=== PATIENT | male | born 1935 | race Caucasian/White ===

== ENCOUNTER → 2017-02-08 | Outpatient (CLI) | payer MEDICARE ==
[~2017-02-08] MED LIST: ACYC400T7 PO; AMLO5TAB2 PO; ASPI325T32 PO; CALC250T2 PO; CITA10TA12 PO; HALO1TAB PO; INSA70301U SQ; INSU100I29 SQ; LISI40TA PO; MELO7.5T46 PO; METF500T4 PO; METO-333 PO; PRED10TA22 PO; RISP1TAB3 PO; RIVA1PAT TD; SIMV5TAB6 PO; [UNRECOGNIZED DRUG - CODE] MC
== END ==
PROVIDERS: ATTEND Urology
DX: Z53.9 Procedure and treatment not carried out, unspecified reason (principal)

== ENCOUNTER 2017-04-28 04:45 | Inpatient (IN) | payer MEDICARE ==
[~2017-04-28] VITALS: Ht 188 cm; Wt 89.0 kg
[2017-04-28] VITALS (29 sets, daily range): BP systolic 102–191; BP diastolic 57–127
[2017-04-28 05:09] LABS: BASOPHILS % (AUTO) 0 % (0-10); EOSINOPHILS # (AUTO) 0.1 10^3/uL (0.0-0.3); EOSINOPHILS % (AUTO) 0 % (0-10); LYMPHOCYTES # (AUTO) 0.9 X 10^3 (1.0-4.0); LYMPHOCYTES % (AUTO) 7 % (12-44); MEAN CORPUSCULAR HEMOGLOBIN 31 PG (25-34); MEAN CORPUSCULAR HGB CONC 34 G/DL (32-36); MEAN CORPUSCULAR VOLUME 93 FL (80-99); MEAN PLATELET VOLUME 9.6 FL (7.4-10.4); MONOCYTES # (AUTO) 1.4 X 10^3 (0.0-1.0); MONOCYTES % (AUTO) 10 % (0-12); NEUTROPHILS # (AUTO) 11.1 X 10^3 (1.8-7.8); NEUTROPHILS % (AUTO) 83 % (42-75); PLATELET COUNT 173 10^3/uL (130-400); RED BLOOD COUNT 3.89 10^6/uL (4.35-5.85); RED CELL DISTRIBUTION WIDTH 13.4 % (10.0-14.5); WHITE BLOOD COUNT 13.4 10^3/uL (4.3-11.0)
[2017-04-28] MEDS ORDERED: DIVA125C10 PO (05:12)
[2017-04-28] MEDS ORDERED: ALPR0.5T7 PO (05:12)
[2017-04-28] MEDS ORDERED: TRAZ100T92 PO (05:12)
[2017-04-28] MEDS ORDERED: RT-ALBUTEROL/IPRATROPIUM 3 ML (DUONEB) VIAL INH ONE (05:15)
[2017-04-28 05:17] LABS: ABG BASE EXCESS 1.5 MMOL/L (-2.5-2.5); ABG HCO3 26 MMOL/L (23-27); ABG OXYGEN SATURATION 100 % (94-100); ABG PCO2 42 MMHG (35-45); ABG PO2 432 MMHG (79-93); ABG TCO2 27.5 MMOL/L (21.0-31.0)
[2017-04-28 05:18] LABS: ALLENS TEST YES-POS; PATIENT TEMP 96.1
[2017-04-28 05:23] LABS: INR 1.1 (0.8-1.4); PROTHROMBIN TIME PATIENT 14.5 SEC (12.2-14.7)
[2017-04-28 05:31] LABS: ALANINE AMINOTRANSFERASE 19 U/L (0-55); ALBUMIN 3.2 GM/DL (3.2-4.5); AMYLASE 34 U/L (25-125); ANION GAP 10 MMOL/L (5-14); ASPARTATE AMINO TRANSFERASE 23 U/L (5-34); BILIRUBIN,TOTAL 0.3 MG/DL (0.1-1.0); BLOOD UREA NITROGEN 16 MG/DL (7-18); BUN/CREATININE RATIO 28; CALCIUM 8.5 MG/DL (8.5-10.1); CARBON DIOXIDE 25 MMOL/L (21-32); CHLORIDE 105 MMOL/L (98-107); CREATININE SERUM 0.58 MG/DL (0.60-1.30); GFR ESTIMATED > 60; GLUCOSE 97 MG/DL (70-105); LIPASE 15 U/L (8-78); MAGNESIUM 1.5 MG/DL (1.8-2.4); POTASSIUM 3.4 MMOL/L (3.6-5.0); SODIUM 140 MMOL/L (135-145); TOTAL PROTEIN 6.1 GM/DL (6.4-8.2)
[2017-04-28 05:32] LABS: BILIRUBIN,URINE NEGATIVE (NEGATIVE); KETONES,URINE NEGATIVE (NEGATIVE); LEUKOCYTE ESTERASE ,URINE 3+ (NEGATIVE); NITRITE,URINE POSITIVE (NEGATIVE); PH,URINE 7 (5-9); PROTEIN,URINE 2+ (NEGATIVE); UROBILINOGEN,URINE NORMAL (NORMAL)
[2017-04-28 05:40] LABS: SQUAMOUS EPITHELIAL CELL,UR 0-2 /HPF
[2017-04-28 05:51] LABS: TROPONIN I < 0.30 NG/ML (<0.30)
[2017-04-28] MEDS ORDERED: DEXTROSE 50% 50 ML (IMS) SYR ONE (06:47)
[2017-04-28] MEDS ORDERED: FUROSEMIDE 40 MG/4 ML INJ (LASIX) IVP ONE (07:00)
--- NOTE | 2017-04-28 07:14 | Diagnostic Imaging Report ---
INDICATION: Unresponsive. Comparison study: Chest from 11/04/2015. FINDINGS: Portable view of the chest demonstrates stable cardiomegaly. Vascularity is slightly increased with pulmonary vascular redistribution. Underlying COPD changes are present. A chondroid lesion is present in the right humerus consistent with an enchondroma. IMPRESSION: Stable cardiomegaly with development of pulmonary vascular redistribution and underlying COPD changes. Dictated by: Dictated on workstation # [id number]
--- NOTE | 2017-04-28 07:17 | Diagnostic Imaging Report ---
INDICATION: Unresponsive rule out stroke. COMPARISON STUDY: MRI of brain from 11/06/2015. FINDINGS: Diffuse central and cortical atrophy is present. White matter changes are present. These appear to have progressed from the previous exam with no focal areas. Calcifications are present within the basilar arteries. No hyperdense MCA sign or insular ribbon sign is present. There is no mass effect, midline shift or hemorrhage. Bone windows demonstrate no evidence of fracture. IMPRESSION: Since a year ago, there has been increase of the diffuse white matter disease consistent with microvascular disease. Atrophy is again identified. No acute intracranial findings are seen at this time. Consider MRI for further evaluation for an acute CVA. Dictated by: Dictated on workstation # [id number]
[2017-04-28] MEDS ORDERED: cefTRIAXone 1 GM (ROCEPHIN) VIAL ONE (07:35)
[2017-04-28] MEDS: cefTRIAXone INJECTION 1,000 MG in NS (IVPB) 50 ML IV SCH (07:48)
[2017-04-28] MEDS: NS (IVPB) 50 ML ONE ×2 (07:48→08:06)
--- NOTE | 2017-04-28 08:27 | History & Physical-Hospitalist ---
HPI History of Present Illness: HPI/Chief Complaint Pt is an 81yoCM with a PMH of dementia who presented to the ER due to unresponsiveness. He is unable to provide me any history. His care provider from [facility] is at bedside. She reports that he had a normal day yesterday and at his 1130pm bed check he was fine per their staff. At 130AM when they checked on him his was unresponsive. She was then called to his room and she checked a blood sugar which was too low to read. EMS was called then. Per ER provide he was treated for hypoglycemia per EMS and nexyt BS check was 88. On arrival here his BS was normal but quickly dropped to 23. He was treated again with an amp of D50. His mentation has not improved despite normalization of blood sugars. He was also found to be hypoxic on arrival and was placed on BiPAP by the ER. He was Source: family Exam Limitations: clinical condition Date Seen 04/28/17 Time Seen by Provider: 07:03 Attending Physician Elaine Waldron MD PCP Dr Hamilton Referring Physician Date of Admission Apr 28, 2017 at 07:40 Home Medications & Allergies Home Medications Reviewed patient Home Medication Reconciliation Form Allergies Allergies Coded Allergies No Known Drug Allergies (Unverified11/04/15) Past Nkepilx-Fepkhc-Hphvsv Hx Patient Social History Employed/Student: retired Alcohol Use: Denies Use Recreational Drug Use: No Smoking Status: Unknown if Ever Smoked Recent Foreign Travel: No Contact w/other who traveled: No Recent Hopitalizations: No Recent Infectious Disease Expo: No Immunizations Up To Date Tetanus Booster (TDap): Unknown Seasonal Allergies Seasonal Allergies: No Surgeries No Lobectomy Respiratory No Cardiovascular Yes High Cholesterol, Hypertension Neurological Yes ALS/Rosie Gehrig's, Dementia, Stroke Genitourinary No Gastrointestinal No Musculoskeletal No Endocrine History of Endocrine Disorders: Yes Endocrine Disorders: Diabetes, Insulin dep HEENT History of HEENT Disorders: No Cancer Yes Liver Psychosocial History of Psychiatric Problem: Yes Behavioral Health Disorders: Depression Integumentary History of Skin or Integumenta: No Family Medical History Significant Family History: No Pertinent Family Hx Review of Systems ROS-Unable to Obtain: Unresponsive Constitutional: see HPI Physical Exam Physical Exam Vital Signs Vital Sign - Last 12Hours 04/28/17 04/28/17 04:58 08:40 Temp 96.1 Pulse 114 Resp 18 B/P (MAP) 92/73 (79) Pulse Ox 88 O2 Delivery Non Rebreather O2 Flow Rate 15.00 FiO2 45 Capillary Refill : Less Than 3 Seconds General Appearance: No Apparent Distress, WD/WN HEENT: PERRL/EOMI, Moist Mucous Membranes, No Scleral Icterus (L), No Scleral Icterus (R), Other (on BIPAP) Neck: Non Tender, Supple, No Lymphadenopathy (L), No Lymphadenopathy (R) Respiratory: No Accessory Muscle Use, Decreased Breath Sounds (bases), Other Cardiovascular: No JVD, No Murmur, Irregularly Irregular Gastrointestinal: Normal Bowel Sounds, Non Tender, Soft Extremity: Normal Capillary Refill, No Calf Tenderness, No Pedal Edema, Other ( mildly hypertonic) Neurologic/Psychiatric: Disoriented x3 Skin: Normal Color, Warm/Dry Results Results/Procedures Lab Laboratory Tests 04/28/17 04:50 Radiology CHEST 1 VIEW, AP/PA ONLY INDICATION: Unresponsive. Comparison study: Chest from 11/04/2015. FINDINGS: Portable view of the chest demonstrates stable cardiomegaly. Vascularity is slightly increased with pulmonary vascular redistribution. Underlying COPD changes are present. A chondroid lesion is present in the right humerus consistent with an enchondroma. IMPRESSION: Stable cardiomegaly with development of pulmonary vascular redistribution and underlying COPD changes. CT HEAD WO-R/O STROKE INDICATION: Unresponsive rule out stroke. COMPARISON STUDY: MRI of brain from 11/06/2015. FINDINGS: Diffuse central and cortical atrophy is present. White matter changes are present. These appear to have progressed from the previous exam with no focal areas. Calcifications are present within the basilar arteries. No hyperdense MCA sign or insular ribbon sign is present. There is no mass effect, midline shift or hemorrhage. Bone windows demonstrate no evidence of fracture. IMPRESSION: Since a year ago, there has been increase of the diffuse white matter disease consistent with microvascular disease. Atrophy is again identified. No acute intracranial findings are seen at this time. Consider MRI for further evaluation for an acute CVA. Assessment/Plan Admission Diagnosis Altered Mental Status Diagnosis/Problems Diagnosis/Problems (1) Altered mental status Status: Acute Assessment & Plan: Likely due to sepsis and hypoglycemia Hypoglycemia improving without marked improvement in mentation Continue IV abx for UTI CT head negative ABG shows no hypercapnia Qualifiers: Qualified Codes: R41.82 - Altered mental status, unspecified (2) UTI (urinary tract infection) Status: Acute Assessment & Plan: Met severe sepsis criteria on admission (tachycardia and leukocytosis with lactic acidosis) No hypotension so no indicatoin for fluid bolus Continue Rocephin Lactic acid now resolved Blood cx and urine cx ordered in ER Qualifiers: Qualified Codes: N30.00 - Acute cystitis without hematuria (3) Severe sepsis Status: Acute Assessment & Plan: As above Lactic acidosis resolved Continue IV Abx (4) Acute respiratory distress Status: Acute Assessment & Plan: Pulm consulted, appreciate recs On BiPAP MAT protocol (5) Atrial fibrillation with RVR Status: Acute Assessment & Plan: Cardiology consulted, appreciate recs Rate improved to 70s-80s (6) Hypoglycemia Status: Acute Assessment & Plan: Received normal Levemir dose last night Continue on D5W at 75ml/hr Q1 accu-cheks (7) Essential (primary) hypertension Status: Chronic Assessment & Plan: BP elevated Unable to tolerate oral home meds prn nitropaste added (8) Normocytic anemia Status: Chronic Assessment & Plan: Mild, trend (9) Counseling regarding end of life decision making Assessment & Plan: Discussed poor prognosis with family, they have confirmed he is a DNR and would not like invasive or extreme measures done Discussed progression of dementia with family and how UTIs and Pneumonia are common in end stage dementia ELAINE WALDRON MD Apr 28, 2017 08:27
[2017-04-28] MEDS ORDERED: ENOXAPARIN 40 MG/0.4 ML (LOVENOX) SYR SC SCH (08:45)
[2017-04-28] MEDS ORDERED: D5 NS 1000 ML IV SOLUTION 1,000 ML IV SCH (08:45)
[2017-04-28] MEDS ORDERED: D5W 1000 ML IV SOLUTION 1,000 ML IV SCH (09:15)
[2017-04-28] MEDS ORDERED: ASPI-983 PO (09:35)
[2017-04-28] MEDS ORDERED: ACET-77 PO (09:35)
[2017-04-28] MEDS ORDERED: TOLTA4 PO (09:35)
[2017-04-28] MEDS ORDERED: MELA3TAB PO (09:35)
[2017-04-28] MEDS ORDERED: POLY17PO6 PO (09:35)
[2017-04-28] MEDS ORDERED: CATHETER FLUSH 10 ML SYR IV PRN (09:45)
--- NOTE | 2017-04-28 10:14 | Consultation-Cardiology ---
HPI-Cardiology Cardiology Consultation: Date of Consultation 04/28/17 Date of Admission Attending Physician Elaine Waldron MD Admitting Physician Radu Srivastava DO Consulting Physician Teagan WRIGHT MD HPI: Time Seen by Provider: 09:15 Chief Complaint: Atrial fibrillation This is a 81-year-old gentleman who presents with altered mental status and was found to have hypoglycemia. Shortness of breath on BiPAP therapy. Also found to be in atrial fibrillation. When I went to take history patient is not responsive. He also has history of advanced dementia. Review of Systems-Cardiology Review of Systems Constitutional: No As described under HPI, No no symptoms reported, No chills, No fever, No lightheadedness, No malaise, No tiredness, No weight loss, No weight gain, No other Eyes: No As described under HPI, No no symptoms reported, No blindness, No blurred vision, No contact lenses, No drainage, No decreased acuity, No foreign body sensation, No glasses, No inflammation, No pain, No photophobia, No previous injury, No shadows, No tunnel vision, No other, No vision change Ears/Nose/Throat: No As described under HPI, No no symptoms reported, No chronic hearing loss, No epistaxis, No ear discharge, No ear pain, No loose teeth, No mouth pain, No mouth swelling, No nasal drainage, No nose pain, No recent hearing loss, No throat pain, No throat swelling, No ulcerations, No other Respiratory: No no symptoms reported, No As described under HPI, No cough, No orthopnea, No shortness of breath, No SOB with excertion, No SOB at rest, No stridor, No wheezing, No other Cardiovascular: irregular heart rate Gastrointestinal: No no symptoms reported, No As described under HPI, No abdomen distended, No abdominal pain, No blood streaked bowels, No constipation , No diarrhea, No difficulty swallowing, No nausea, No poor appetite, No poor fluid intake, No rectal bleeding, No vomiting, No other, No nausea/vomiting/ diarrhea, No stool coloration changes Genitourinary: No no symptoms reported, No As described under HPI, No burning, No dysuria, No discharge, No frequency, No flank pain, No hematuria, No incontinence, No pain, No urgency, No other, No urine frequency changes, No urine coloration changes Musculoskeletal: No no symptoms reported, No As describe under HPI, No back pain, No gout, No joint pain, No joint swelling, No muscle pain, No muscle stiffness, No neck pain, No other Skin: No no symptoms reported, No As described under HPI, No change in color, No change in hair/nails, No dryness, No lesions, No lumps, No rash, No other, No skin related problems, No ulcerations, No rash on exposed areas, No ulcerations on exposed areas Psychiatric/Neurological: No no symptoms reported, No As described under HPI, No anxiety, No depression, No emotional problems, No headache, No numbness, No pre-existing deficit, No seizure, No tingling, No tremors, No weakness, No other , No focal weakness, No syncope Hematologic: No no symptoms reported, No As described under HPI, No anemia, No blood clots, No easy bleeding, No easy bruising, No swollen glands, No other, No bleeding abnormalities WNA-Vqlgpo-Bgrucv Hx Patient Social History Employed/Student: retired Alcohol Use: Denies Use Recreational Drug Use: No Smoking Status: Unknown if Ever Smoked Recent Foreign Travel: No Recent Infectious Disease Expo: No Hospitalization with Isolation: Denies Immunizations Up To Date Tetanus Booster (TDap): Unknown Past Medical History PMH As described under Assessment. Allergies and Home Medications Allergies Coded Allergies: No Known Drug Allergies (Unverified , 11/04/15) Home Medications Acetaminophen 500 Mg Tablet, 1,000 MG PO TID, (Reported) TAKES 2 (500MG) TABLETS Alprazolam 0.5 Mg Tablet, 0.5 MG PO TID, (Reported) Amlodipine Besylate 5 Mg Tablet, 5 MG PO DAILY, (Reported) HOLD SBP<100 HR<60 Aspirin 81 Mg Tablet.dr, 81 MG PO DAILY, (Reported) Divalproex Sodium 125 Mg Cap.sprink, 250 MG PO QID, (Reported) TAKES 2 (125MG) CAPSULES Insulin Detemir 100 Unit/1 Ml Insuln.pen, 15 UNIT SQ 1700, (Reported) Lisinopril 40 Mg Tablet, 40 MG PO DAILY, (Reported) HOLD SBP<100 Melatonin 3 Mg Tablet, 3 MG PO HS, (Reported) Meloxicam 7.5 Mg Tablet, 7.5 MG PO DAILY, (Reported) Metformin HCl 500 Mg Tablet, 500 MG PO BID, (Reported) Metoprolol Tartrate 25 Mg Tablet, 25 MG PO DAILY, (Reported) HOLD SBP<100 Polyethylene Glycol 3350 17 Gm Powd.pack, 17 GM PO DAILY, (Reported) Simvastatin 5 Mg Tablet, 5 MG PO 1700, (Reported) Tolterodine Tartrate 4 Mg Cap, 4 MG PO DAILY, (Reported) Trazodone HCl 100 Mg Tablet, 100 MG PO HS, (Reported) Physical Exam-Cardiology Physical Exam Vital Signs/I&O Vital Sign - Last 12Hours 04/28/17 04/28/17 04/28/17 04/28/17 04:58 04:58 05:21 07:38 Temp 96.1 Pulse 114 76 Resp 18 15 B/P (MAP) 92/73 (79) Pulse Ox 88 88 100 100 O2 Delivery Non Rebreather Non Rebreather O2 Flow Rate 15.00 15.00 100.00 45.00 04/28/17 04/28/17 04/28/17 04/28/17 08:11 08:38 08:45 08:45 Temp 96.0 Pulse 77 69 69 Resp 18 20 11 B/P (MAP) 170/99 (122) Pulse Ox 100 98 100 O2 Delivery NIV Bilevel NIV Bilevel O2 Flow Rate 45.00 45.00 04/28/17 04/28/17 04/28/17 04/28/17 09:00 09:15 09:30 09:45 Pulse 70 69 68 80 Resp 10 11 11 13 B/P (MAP) 156/93 (114) 157/95 (115) 157/97 (117) 169/105 (126) Pulse Ox 100 100 100 100 O2 Delivery NIV Bilevel NIV Bilevel NIV Bilevel NIV Bilevel O2 Flow Rate 45.00 45.00 45.00 45.00 04/28/17 04/28/17 04/28/17 04/28/17 10:00 10:15 10:30 10:30 Temp 96.8 Pulse 79 74 81 Resp 18 13 10 B/P (MAP) 172/104 (126) 179/127 (144) Pulse Ox 100 100 100 O2 Delivery NIV Bilevel NIV Bilevel NIV Bilevel O2 Flow Rate 45.00 45.00 45.00 04/28/17 04/28/17 04/28/17 04/28/17 10:40 10:45 11:00 11:04 Pulse 94 86 77 83 Resp 10 14 B/P (MAP) 169/95 (119) Pulse Ox 100 99 100 100 O2 Delivery NIV Bilevel NIV Bilevel O2 Flow Rate 45.00 45.00 45.00 FiO2 45 04/28/17 04/28/17 04/28/17 11:10 11:15 12:00 Pulse 80 8 Resp 16 15 B/P (MAP) 167/105 (125) Pulse Ox 100 100 O2 Delivery NIV Bilevel NIV Bilevel NIV Bilevel O2 Flow Rate 35.00 30.00 30.00 Capillary Refill : Less Than 3 Seconds Constitutional: other HEENT: No PERRL, No normal ENT inspection, No TMs normal, No pharynx normal, No scleral icterus (R), No scleral icterus (L), No pale conjunctivae (R), No pale conjunctivae (L), No photophobia, No TM abnormal (R), No TM abnormal (L), No pharyngeal erythema, No tonsillar exudate, No other, No discharge, No EOMI, No hearing is well preserved, No hard of hearing, No oral hygience is good, No ulceration, No xanthelasmas are seen Neck: No non-tender, No full range of motion, No supple, No normal inspection, No carotid bruit, No limited range of motion, No lymphadenopathy (R), No lymphadenopathy (L), No tender lateral, No tender midline, No thyromegaly, No other, No carotid pulses are 2 + bilaterally, No with good upstrokes Respiratory: other (coarse bilateral breath sounds) Cardiovascular: irregularly irregular, tachycardia, S1 and S2 Gastrointestinal: No tender, No soft, No round, No distended, No pulsatile mass , No organomegaly, No guarding, No rebound, No tenderness, No hernia, No mass, No audible bowel sounds, No abnormal bowel sounds, No abdominal bruits, No spleenomegaly, No other Rectal: deferred Extremities: No normal range of motion, No non-tender, No normal inspection, No pedal edema, No calf tenderness, No normal capillary refill, No pelvis stable , No calf tenderness, No inflammation, No pedal edema, No slow capillary refill , No swelling, No other, No abrasion, No clubbing, No cyanosis, No ecchymosis, No laceration, No no lower extremity edema bilateral, No significant edema, No tenderness, No wound Neurologic/Psychiatric: No asw/asuw tactical air controller II-XII nml as tested, No no motor/sensory deficits, No alert, No normal mood/affect, No oriented x 3, No abnormal cerebellar tests, No abnormal asw/asuw tactical air controller II-XII, No abnormal gait, No aphasia, No EOM palsy, No facial droop, No motor weakness, No sensory deficit, No depressed affect, No disoriented x 3, No other, No grossly intact, No power is 5/5 both on sides Skin: No normal color, No warm/dry, No cyanosis, No cool, No diaphoresis, No damp, No ecchymosis, No jaundice, No mottled, No pallor, No rash, No tattoos/ piercings, No ulcerations, No rash on exposed areas, No ulcerations on exposed areas, No other Data Review Labs Laboratory Tests 04/28/17 04:50: White Blood Count 13.4H, Red Blood Count 3.89L, Hemoglobin 12.2L, Hematocrit 36L , Mean Corpuscular Volume 93, Mean Corpuscular Hemoglobin 31, Mean Corpuscular Hemoglobin Concent 34, Red Cell Distribution Width 13.4, Platelet Count 173, Mean Platelet Volume 9.6, Neutrophils (%) (Auto) 83H, Lymphocytes (%) (Auto) 7L , Monocytes (%) (Auto) 10, Eosinophils (%) (Auto) 0, Basophils (%) (Auto) 0, Neutrophils # (Auto) 11.1H, Lymphocytes # (Auto) 0.9L, Monocytes # (Auto) 1.4H, Eosinophils # (Auto) 0.1, Basophils # (Auto) 0.0, Prothrombin Time 14.5, INR Comment 1.1, Activated Partial Thromboplast Time 33, Sodium Level 140, Potassium Level 3.4L, Chloride Level 105, Carbon Dioxide Level 25, Anion Gap 10 , Blood Urea Nitrogen 16, Creatinine 0.58L, Estimat Glomerular Filtration Rate > 60, BUN/Creatinine Ratio 28, Glucose Level 97, Lactic Acid Level 2.13*H, Calcium Level 8.5, Magnesium Level 1.5L, Total Bilirubin 0.3, Aspartate Amino Transf (AST/SGOT) 23, Alanine Aminotransferase (ALT/SGPT) 19, Alkaline Phosphatase 112, Troponin I < 0.30, B-Type Natriuretic Peptide 296.9H, Total Protein 6.1L, Albumin 3.2, Amylase Level 34, Lipase 15, TSH [place] Testing 2.08 , Valproic Acid (Depakene) Level 38.2L 04/28/17 04:58: Glucometer 98 04/28/17 05:12: Blood Gas Puncture Site RIGHT RADIAL, Blood Gas Patient Temperature 96.1, Arterial Blood pH 7.40, Arterial Blood Partial Pressure CO2 42, Arterial Blood Partial Pressure O2 432H, Arterial Blood HCO3 26, Arterial Blood Total CO2 27.5 , Arterial Blood Oxygen Saturation 100, Arterial Blood Base Excess 1.5, Jacobo Test YES-POS, Blood Gas Ventilator Setting NO, Blood Gas Inspired Oxygen 100% 04/28/17 05:25: Urine Color YELLOW, Urine Clarity CLEAR, Urine pH 7, Urine Specific [place] 1.010L, Urine Protein 2+H, Urine Glucose (UA) NEGATIVE, Urine Ketones NEGATIVE, Urine Nitrite POSITIVEH, Urine Bilirubin NEGATIVE, Urine Urobilinogen NORMAL, Urine Leukocyte Esterase 3+H, Urine RBC (Auto) 1+H, Urine RBC 0-2, Urine WBC 5- 10H, Urine Squamous Epithelial Cells 0-2, Urine Crystals NONE, Urine Bacteria MODERATEH, Urine Casts NONE, Urine Mucus NEGATIVE, Urine Culture Indicated YES 04/28/17 06:47: Lactic Acid Level 2.20*H 04/28/17 06:48: Glucometer 23*L 04/28/17 07:23: Glucometer 99 04/28/17 08:50: Lactic Acid Level 2.20*H 04/28/17 08:55: Glucometer 70 04/28/17 10:31: Glucometer 103 04/28/17 11:06: Glucometer 88 04/28/17 11:37: Lactic Acid Level 1.86 04/28/17 12:45: Glucometer 114H Microbiology 04/28/17 Influenza Types A,B Antigen (LISA) - Final, Complete ECG Impression ECG Initial ECG Impression: Atrial Fibrillation A/P-Cardiology Assessment/Admission Diagnosis Unresponsive, shortness of breath, atrial fibrillation with rapid ventricular rate, dementia Plan Unresponsive likely secondary to hypoglycemia. Defer to Dr. Waldron. Advanced dementia. Shortness of breath on BiPAP therapy. Atrial fibrillation with rapid ventricular rate. Already on Lovenox. Cannot take by mouth. Need to discuss with family whether they will agree with oral anticoagulation therapy. If he has risk for fall he may not be a good candidate. Echocardiogram pending Thank you for your consultation. Please call me if you have any questions. Kashmir Wright MD, FACP, FACC, FSCAI, FHRS, CCDS Interventional Cardiology Cardiac Electrophysiology Vascular Medicine and Endovascular Interventions Teagan WRIGHT MD Apr 28, 2017 10:14 am
[2017-04-28] MEDS ORDERED: NITROGLYCERIN 2% OINT 1 GM UNIT DOSE PACKET TOP PRN (14:00)
[2017-04-28] MEDS: RT-ALBUTEROL/IPRATROPIUM 3 ML (DUONEB) VIAL INH SCH ×3 (14:21→21:11)
[2017-04-28] MEDS: inSUlin ASPART (NovoLOG) 1 UNIT/0.01 ML (CHARGE PER UNIT) SC SCH ×2 (15:41→21:45)
[2017-04-28] MEDS: MAGNESIUM 1 GM/100 ML IVPB 100 ML IV SCH ×3 (16:18→17:37)
[2017-04-29] VITALS (27 sets, daily range): BP systolic 128–179; BP diastolic 49–105
[2017-04-29] MEDS: RT-ALBUTEROL/IPRATROPIUM 3 ML (DUONEB) VIAL INH SCH ×6 (02:25→21:50)
[2017-04-29 04:59] LABS: BASOPHILS % (AUTO) 0 % (0-10); EOSINOPHILS % (AUTO) 0 % (0-10); LYMPHOCYTES # (AUTO) 1.9 X 10^3 (1.0-4.0); LYMPHOCYTES % (AUTO) 19 % (12-44); MEAN CORPUSCULAR HEMOGLOBIN 32 PG (25-34); MEAN CORPUSCULAR HGB CONC 34 G/DL (32-36); MEAN CORPUSCULAR VOLUME 94 FL (80-99); MEAN PLATELET VOLUME 9.7 FL (7.4-10.4); MONOCYTES # (AUTO) 1.3 X 10^3 (0.0-1.0); MONOCYTES % (AUTO) 12 % (0-12); NEUTROPHILS # (AUTO) 7.1 X 10^3 (1.8-7.8); NEUTROPHILS % (AUTO) 69 % (42-75); PLATELET COUNT 171 10^3/uL (130-400); RED BLOOD COUNT 3.94 10^6/uL (4.35-5.85); RED CELL DISTRIBUTION WIDTH 13.6 % (10.0-14.5); WHITE BLOOD COUNT 10.4 10^3/uL (4.3-11.0)
[2017-04-29 05:21] LABS: ANION GAP 11 MMOL/L (5-14); BLOOD UREA NITROGEN 18 MG/DL (7-18); BUN/CREATININE RATIO 26; CARBON DIOXIDE 26 MMOL/L (21-32); CHLORIDE 100 MMOL/L (98-107); POTASSIUM 4.2 MMOL/L (3.6-5.0); SODIUM 137 MMOL/L (135-145)
[2017-04-29 05:22] LABS: CALCIUM 9.3 MG/DL (8.5-10.1); GFR ESTIMATED > 60; GLUCOSE 138 MG/DL (70-105); MAGNESIUM 1.7 MG/DL (1.8-2.4)
[2017-04-29] MEDS: POTASSIUM CL 10MEQ/50ML IVPB 50 ML IV SCH (05:34)
[2017-04-29] MEDS: MAGNESIUM 1 GM/100 ML IVPB 100 ML IV SCH ×3 (05:34→07:39)
[2017-04-29] MEDS: KCL 20 MEQ TAB (K-DUR) PO SCH (05:35)
[2017-04-29] MEDS: inSUlin ASPART (NovoLOG) 1 UNIT/0.01 ML (CHARGE PER UNIT) SC SCH ×4 (05:35→21:13)
[2017-04-29 06:25] LABS: ABG BASE EXCESS 3.2 MMOL/L (-2.5-2.5); ABG HCO3 27 MMOL/L (23-27); ABG OXYGEN SATURATION 100 % (94-100); ABG PCO2 36 MMHG (35-45); ABG PH 7.48 (7.37-7.43); ABG PO2 157 MMHG (79-93); ABG TCO2 27.7 MMOL/L (21.0-31.0)
[2017-04-29 06:35] LABS: ALLENS TEST YES-POS; PATIENT TEMP 98.6
--- NOTE | 2017-04-29 06:41 | Pulmonary Consultation ---
History of Present Illness History of Present Illness Date of Consultation 04/29/17 06:35 Time Seen by Provider: 06:35 Date of Admission History of Present Illness 81yo pt with hx of dementia presented to ED secondary to unresponsiveness. BS was too low to read when checked. PT was given D50 and then BS quickly dropped to 23. D50 was given again however MS did not improve. He was found to be hypoxic in ED and was placed on BiPAP. Unable to obtain ROS secondary to MS. All information obtained from chart. I am consulted for ICU management. Allergies and Home Medications Allergies Coded Allergies: No Known Drug Allergies (Unverified , 11/04/15) Home Medications Acetaminophen 500 Mg Tablet, 1,000 MG PO TID, (Reported) TAKES 2 (500MG) TABLETS Alprazolam 0.5 Mg Tablet, 0.5 MG PO TID, (Reported) Amlodipine Besylate 5 Mg Tablet, 5 MG PO DAILY, (Reported) HOLD SBP<100 HR<60 Aspirin 81 Mg Tablet.dr, 81 MG PO DAILY, (Reported) Divalproex Sodium 125 Mg Cap.sprink, 250 MG PO QID, (Reported) TAKES 2 (125MG) CAPSULES Insulin Detemir 100 Unit/1 Ml Insuln.pen, 15 UNIT SQ 1700, (Reported) Lisinopril 40 Mg Tablet, 40 MG PO DAILY, (Reported) HOLD SBP<100 Melatonin 3 Mg Tablet, 3 MG PO HS, (Reported) Meloxicam 7.5 Mg Tablet, 7.5 MG PO DAILY, (Reported) Metformin HCl 500 Mg Tablet, 500 MG PO BID, (Reported) Metoprolol Tartrate 25 Mg Tablet, 25 MG PO DAILY, (Reported) HOLD SBP<100 Polyethylene Glycol 3350 17 Gm Powd.pack, 17 GM PO DAILY, (Reported) Simvastatin 5 Mg Tablet, 5 MG PO 1700, (Reported) Tolterodine Tartrate 4 Mg Cap, 4 MG PO DAILY, (Reported) Trazodone HCl 100 Mg Tablet, 100 MG PO HS, (Reported) Past [id number]-Ytxbea-Bzcnvn Hx Patient Social History Alcohol Use: Denies Use Recreational Drug Use: No Smoking Status: Former Smoker Type Used: Cigarettes Former Smoker, Quit: Apr 11, 1990 Recent Foreign Travel: No Contact w/Someone Who Travel: No Recent Infectious Disease Expo: No Recent Hopitalizations: No Immunizations Up To Date Tetanus Booster (TDap): Unknown Date of Pneumonia Vaccine: Apr 28, 2016 Date of Influenza Vaccine: Apr 17, 2017 Seasonal Allergies Seasonal Allergies: No Surgeries History of Surgeries: No Surgeries: Lobectomy Respiratory History of Respiratory Disorde: No Cardiovascular History of Cardiac Disorders: Yes Cardiac Disorders: High Cholesterol, Hypertension Neurological History of Neurological Disord: Yes Neurological Disorders: ALS/Rosie Gehrig's, Dementia, Stroke Reproductive System HIV/AIDS: No Genitourinary History of Genitourinary Disor: No Gastrointestinal History of Gastrointestinal Di: No Musculoskeletal History of Musculoskeletal Dis: No Endocrine History of Endocrine Disorders: Yes Endocrine Disorders: Diabetes, Insulin dep HEENT History of HEENT Disorders: No Cancer History of Cancer: Yes (never diagnosed but "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" per DPOA) Cancer: Liver Did You Recieve Any Treatments: No Psychosocial History of Psychiatric Problem: Yes Behavioral Health Disorders: Sleep Difficulties, Depression Integumentary History of Skin or Integumenta: No Family Medical History Significant Family History: No Pertinent Family Hx Family Medial History: Diabetes mellitus 19 MOTHER FH: cancer G8 BROTHER, Onset:60 years & older Review of Systems Time Seen by Provider: 06:45 Exam Exam Vital Signs Date Time Temp Pulse Resp B/P (MAP) Pulse Ox O2 Delivery O2 Flow Rate FiO2 04/29/17 06:18 80 97 30.00 04/29/17 06:00 88 11 147/87 (107) 97 NIV Bilevel 30.00 04/29/17 05:00 89 19 149/93 (111) 98 NIV Bilevel 30.00 04/29/17 04:00 86 14 147/94 (111) 97 NIV Bilevel 30.00 04/29/17 03:00 86 25 159/92 (114) 95 NIV Bilevel 30.00 04/29/17 02:25 80 97 30.00 04/29/17 02:00 80 17 148/83 (104) 98 NIV Bilevel 30.00 04/29/17 01:00 85 04/29/17 01:00 90 11 128/49 (75) 97 NIV Bilevel 30.00 04/29/17 00:00 95 NIV Bilevel 30 04/29/17 00:00 80 13 150/82 (104) 97 NIV Bilevel 30.00 04/28/17 23:00 75 11 146/63 (90) 98 NIV Bilevel 30.00 04/28/17 22:00 84 16 133/57 (82) 100 NIV Bilevel 30.00 04/28/17 21:11 80 94 30.00 04/28/17 21:00 86 16 155/89 (111) 98 NIV Bilevel 30.00 04/28/17 20:00 NIV Bilevel 30 04/28/17 20:00 97.6 04/28/17 20:00 82 20 180/66 (104) 100 NIV Bilevel 30.00 04/28/17 19:47 87 96 30.00 04/28/17 19:00 80 15 164/90 (114) 100 NIV Bilevel 30.00 04/28/17 19:00 80 04/28/17 18:14 80 100 30.00 04/28/17 18:00 80 19 176/89 (118) 100 NIV Bilevel 30.00 04/28/17 17:00 80 20 191/63 (105) 100 NIV Bilevel 30.00 04/28/17 16:32 78 30.00 04/28/17 16:25 NIV Bilevel 30 04/28/17 16:00 76 14 172/92 (118) 100 NIV Bilevel 30.00 04/28/17 15:45 98.0 04/28/17 15:00 75 11 141/67 (91) 100 NIV Bilevel 30.00 04/28/17 14:45 04/28/17 14:29 77 100 30.00 04/28/17 14:00 92 12 186/88 (120) NIV Bilevel 30.00 04/28/17 13:00 90 04/28/17 13:00 87 6 176/112 (133) NIV Bilevel 30.00 04/28/17 12:40 97.1 04/28/17 12:35 NIV Bilevel 30 04/28/17 12:00 81 15 167/105 (125) 100 NIV Bilevel 30.00 04/28/17 11:15 80 16 100 NIV Bilevel 30.00 04/28/17 11:10 NIV Bilevel 35.00 04/28/17 11:04 83 100 45.00 04/28/17 11:00 77 14 169/95 (119) 100 NIV Bilevel 45.00 04/28/17 10:45 86 10 99 NIV Bilevel 45.00 04/28/17 10:40 94 100 45 04/28/17 10:30 96.8 04/28/17 10:30 81 10 100 NIV Bilevel 45.00 04/28/17 10:15 74 13 179/127 (144) 100 NIV Bilevel 45.00 04/28/17 10:00 79 18 172/104 (126) 100 NIV Bilevel 45.00 04/28/17 09:45 80 13 169/105 (126) 100 NIV Bilevel 45.00 04/28/17 09:30 68 11 157/97 (117) 100 NIV Bilevel 45.00 04/28/17 09:15 69 11 157/95 (115) 100 NIV Bilevel 45.00 04/28/17 09:00 70 10 156/93 (114) 100 NIV Bilevel 45.00 04/28/17 08:45 69 11 170/99 (122) 100 NIV Bilevel 45.00 04/28/17 08:45 96.0 04/28/17 08:40 NIV Bilevel 45 04/28/17 08:38 69 20 98 45.00 04/28/17 08:11 77 18 100 NIV Bilevel 04/28/17 07:38 76 15 100 45.00 I & O 04/29/17 07:00 Intake Total 750 ml Output Total 2250 ml Balance -1500 ml General Appearance: No Apparent Distress, WD/WN HEENT: PERRL/EOMI, Moist Mucous Membranes, No Scleral Icterus (L), No Scleral Icterus (R), Other (on BIPAP) Neck: Non Tender, Supple, No Lymphadenopathy (L), No Lymphadenopathy (R) Respiratory: No Accessory Muscle Use, Decreased Breath Sounds (bases), Other Cardiovascular: No JVD, No Murmur, Irregularly Irregular Capillary Refill: Less Than 3 Seconds Extremity: Normal Capillary Refill, No Calf Tenderness, No Pedal Edema, Other ( mildly hypertonic) Neurologic/Psychiatric: Disoriented x3 Skin: Normal Color, Warm/Dry Results Lab Laboratory Tests 04/28/17 04:50 04/29/17 04:40 Assessment/Plan Assessment/Plan UTI with sepsis -Continue Rocephin -loera cultures pending Acute respiratory failure -BiPAP PRN -Will trial pt off BiPAP Afib RVR -cardiology consulted Altered MS with hx of severe dementia. Family is discussing comfort care/ hospice care. 255 Clinical Quality Measures DVT/VTE Risk/Contraindication: Risk Factor Score Per Nursin RFS Level Per Nursing on Admit: 4+=Very High LESIA AVILES DO Apr 29, 2017 06:41
--- NOTE | 2017-04-29 08:07 | Progress Note-Hospitalist ---
Subjective HPI/CC On Admission Date Seen by Provider: Apr 29, 2017 Time Seen by Provider: 07:30 Pt is an 81yoCM with a PMH of dementia who presented to the ER due to unresponsiveness. He is unable to provide me any history. His care provider from [facility] is at bedside. She reports that he had a normal day yesterday and at his 1130pm bed check he was fine per their staff. At 130AM when they checked on him his was unresponsive. She was then called to his room and she checked a blood sugar which was too low to read. EMS was called then. Per ER provide he was treated for hypoglycemia per EMS and nexyt BS check was 88. On arrival here his BS was normal but quickly dropped to 23. He was treated again with an amp of D50. His mentation has not improved despite normalization of blood sugars. He was also found to be hypoxic on arrival and was placed on BiPAP by the ER. He was Subjective/Events-last exam Pt unable to provide ROS. Daughter in law at bedside. Reports not back to his baseline. Discussed progression of dementia and that we may not return to his normal. They are considering hospice and would like to meet with Palliative RN. Objective Exam Vital Signs Vital Sign - Last 12Hours 04/28/17 04/28/17 04:58 08:40 Temp 96.1 Pulse 114 Resp 18 B/P (MAP) 92/73 (79) Pulse Ox 88 O2 Delivery Non Rebreather O2 Flow Rate 15.00 FiO2 45 Capillary Refill : Less Than 3 Seconds General Appearance: Chronically ill Respiratory: Lungs Clear, No Accessory Muscle Use Cardiovascular: No JVD, No Murmur, Irregularly Irregular Gastrointestinal: Normal Bowel Sounds, Non Tender, Soft Extremity: Non Tender, No Calf Tenderness, No Pedal Edema, Other (hypertonic posture) Neurologic/Psychiatric: Alert, Disoriented x3 Results/Procedures Lab Laboratory Tests 04/29/17 04:40 Assessment/Plan Assessment and Plan Assess & Plan/Chief Complaint Sepsis Diagnosis/Problems Diagnosis/Problems (1) Altered mental status Status: Acute Assessment & Plan: Likely due to sepsis Hypoglycemia now Continue IV abx for UTI CT head negative ABG shows no hypercapnia Qualifiers: Qualified Codes: R41.82 - Altered mental status, unspecified (2) UTI (urinary tract infection) Status: Acute Assessment & Plan: Met severe sepsis criteria on admission (tachycardia and leukocytosis with lactic acidosis) No hypotension so no indication for fluid bolus Continue Rocephin, Day 2 Lactic acidosis now resolved Blood cx and urine cx ordered in ER - urine cx shows proteus >100,000 CFU and <100,000 CFU GPC Qualifiers: Qualified Codes: N30.00 - Acute cystitis without hematuria (3) Severe sepsis Status: Resolved Assessment & Plan: As above Lactic acidosis resolved Continue IV Abx (4) Acute respiratory distress Status: Acute Assessment & Plan: Pulm consulted, appreciate recs Now off BiPAP MAT protocol (5) Atrial fibrillation with RVR Status: Acute Assessment & Plan: Cardiology consulted, appreciate recs Rate improved to 70s-80s Started Lovenox and developed abby red bloody urine Holding currently (6) Hypoglycemia Status: Acute Assessment & Plan: Holding basal insulin and BS WNL Off D5 Continue to trend Q6 Accu-checks (7) Essential (primary) hypertension Status: Chronic Assessment & Plan: BP elevated Unable to tolerate oral home meds prn nitropaste (8) Normocytic anemia Status: Chronic Assessment & Plan: Mild, trend (9) Counseling regarding end of life decision making Assessment & Plan: Discussed poor prognosis with family, they have confirmed he is a DNR and would not like invasive or extreme measures done Discussed progression of dementia with family and how UTIs and Pneumonia are common in end stage dementia Interested in meeting with Palliative RN to discuss possible hospice JESSI GARCIA MD Apr 29, 2017 08:07
[2017-04-29] MEDS: cefTRIAXone INJECTION 1,000 MG in NS (IVPB) 50 ML IV SCH (08:44)
--- NOTE | 2017-04-29 12:53 | Cardiology Progress Note ---
Cardiology SOAP Progress Note Subjective: nonresponsive Objective: I&O/Vital Signs Vital Sign - Last 12Hours 04/29/17 04/29/17 04/29/17 04/29/17 01:00 01:00 02:00 02:25 Pulse 90 85 80 80 Resp 11 17 B/P (MAP) 128/49 (75) 148/83 (104) Pulse Ox 97 98 97 O2 Delivery NIV Bilevel NIV Bilevel O2 Flow Rate 30.00 30.00 30.00 04/29/17 04/29/17 04/29/17 04/29/17 03:00 04:00 04:00 05:00 Pulse 86 86 89 Resp 25 14 19 B/P (MAP) 159/92 (114) 147/94 (111) 149/93 (111) Pulse Ox 95 95 97 98 O2 Delivery NIV Bilevel NIV Bilevel NIV Bilevel NIV Bilevel O2 Flow Rate 30.00 30.00 30.00 FiO2 30 04/29/17 04/29/17 04/29/17 04/29/17 06:00 06:18 06:51 07:00 Pulse 88 80 81 89 Resp 11 18 B/P (MAP) 147/87 (107) Pulse Ox 97 97 98 O2 Delivery NIV Bilevel Nasal Cannula O2 Flow Rate 30.00 30.00 4.00 04/29/17 04/29/17 04/29/17 04/29/17 07:00 07:50 07:50 08:00 Temp 98.5 Pulse 84 80 Resp 10 14 B/P (MAP) 151/105 (120) 158/74 (102) Pulse Ox 99 99 O2 Delivery Nasal Cannula Nasal Cannula Nasal Cannula O2 Flow Rate 4.00 4.00 4.00 04/29/17 04/29/17 04/29/17 04/29/17 09:00 10:25 12:00 12:16 Temp 98.2 Pulse 92 Resp 20 B/P (MAP) 135/84 (101) Pulse Ox 99 97 O2 Delivery Nasal Cannula Nasal Cannula Nasal Cannula O2 Flow Rate 4.00 4.00 4.00 Intake and Output 04/29/17 00:00 Intake Total 700 ml Output Total 725 ml Balance -25 ml Weight (Pounds): 155 Weight (Ounces): 4.0 Weight (Calculated Kilograms): [id number] Constitutional: other Respiratory: other (coarse bilateral breath sounds) Cardiovascular: irregularly irregular, tachycardia, S1 and S2 Gastrointestional: No tender, No soft, No round, No distended, No pulsatile mass, No organomegaly, No guarding, No rebound, No tenderness, No hernia, No mass, No audible bowel sounds, No abnormal bowel sounds, No abdominal bruits, No spleenomegaly, No other Extremities: No normal range of motion, No non-tender, No normal inspection, No pedal edema, No calf tenderness, No normal capillary refill, No pelvis stable , No calf tenderness, No inflammation, No pedal edema, No slow capillary refill , No swelling, No other, No abrasion, No clubbing, No cyanosis, No ecchymosis, No laceration, No no lower extremity edema bilateral, No significant edema, No tenderness, No wound Neurologic/Psychiatric: No network architect II-XII nml as tested, No no motor/sensory deficits, No alert, No normal mood/affect, No oriented x 3, No abnormal cerebellar tests, No abnormal network architect II-XII, No abnormal gait, No aphasia, No EOM palsy, No facial droop, No motor weakness, No sensory deficit, No depressed affect, No disoriented x 3, No other, No grossly intact, No power is 5/5 both on sides Skin: No normal color, No warm/dry, No cyanosis, No cool, No diaphoresis, No damp, No ecchymosis, No jaundice, No mottled, No pallor, No rash, No tattoos/ piercings, No ulcerations, No rash on exposed areas, No ulcerations on exposed areas, No other Results/Procedures: Labs Laboratory Tests 04/28/17 13:36: Glucometer 114H 04/28/17 14:31: Glucometer 132H 04/28/17 15:34: Glucometer 155H 04/28/17 17:05: Glucometer 136H 04/28/17 18:04: Glucometer 144H 04/28/17 21:44: Glucometer 120H 04/29/17 01:11: Glucometer 125H 04/29/17 04:40: White Blood Count 10.4, Red Blood Count 3.94L, Hemoglobin 12.5L, Hematocrit 37L , Mean Corpuscular Volume 94, Mean Corpuscular Hemoglobin 32, Mean Corpuscular Hemoglobin Concent 34, Red Cell Distribution Width 13.6, Platelet Count 171, Mean Platelet Volume 9.7, Neutrophils (%) (Auto) 69, Lymphocytes (%) (Auto) 19, Monocytes (%) (Auto) 12, Eosinophils (%) (Auto) 0, Basophils (%) (Auto) 0, Neutrophils # (Auto) 7.1, Lymphocytes # (Auto) 1.9, Monocytes # (Auto) 1.3H, Eosinophils # (Auto) 0.0, Basophils # (Auto) 0.0, Sodium Level 137, Potassium Level 4.2, Chloride Level 100, Carbon Dioxide Level 26, Anion Gap 11, Blood Urea Nitrogen 18, Creatinine 0.70, Estimat Glomerular Filtration Rate > 60, BUN/ Creatinine Ratio 26, Glucose Level 138H, Calcium Level 9.3, Magnesium Level 1.7L 04/29/17 06:18: Blood Gas Puncture Site LEFT RADIAL, Blood Gas Patient Temperature 98.6, Arterial Blood pH 7.48H, Arterial Blood Partial Pressure CO2 36, Arterial Blood Partial Pressure O2 157H, Arterial Blood HCO3 27, Arterial Blood Total CO2 27.7 , Arterial Blood Oxygen Saturation 100, Arterial Blood Base Excess 3.2H, Jacobo Test YES-POS, Blood Gas Ventilator Setting NO, Blood Gas Inspired Oxygen 30% 04/29/17 08:42: Glucometer 148H 04/29/17 12:04: Glucometer 129H Microbiology 04/28/17 Influenza Types A,B Antigen (LISA) - Final, Complete 04/28/17 Urine Culture - Preliminary, Resulted Proteus Group Gram Positive Cocci A/P: Assessment/Dx: Unresponsive, shortness of breath, atrial fibrillation with rapid ventricular rate, dementia Plan: Unresponsive likely secondary to hypoglycemia. Defer to Dr. Waldron. Advanced dementia. Shortness of breath on BiPAP therapy. Atrial fibrillation with rapid ventricular rate. Already on Lovenox. Cannot take by mouth. Need to discuss with family whether they will agree with oral anticoagulation therapy. If he has risk for fall he may not be a good candidate. Echocardiogram shows normal LV function. No significant valvular heart disease. Thank you for your consultation. Please call me if you have any questions. Kashmir Wright MD, FACP, FACC, FSCAI, FHRS, CCDS Interventional Cardiology Cardiac Electrophysiology Vascular Medicine and Endovascular Interventions Teagan WRIGHT MD Apr 29, 2017 12:53 pm
[2017-04-30] VITALS (11 sets, daily range): BP systolic 119–163; BP diastolic 75–108
[2017-04-30] MEDS: RT-ALBUTEROL/IPRATROPIUM 3 ML (DUONEB) VIAL INH SCH ×6 (03:03→22:50)
[2017-04-30 05:05] LABS: BASOPHILS % (AUTO) 0 % (0-10); EOSINOPHILS % (AUTO) 0 % (0-10); LYMPHOCYTES # (AUTO) 1.7 X 10^3 (1.0-4.0); LYMPHOCYTES % (AUTO) 16 % (12-44); MEAN CORPUSCULAR HEMOGLOBIN 32 PG (25-34); MEAN CORPUSCULAR HGB CONC 34 G/DL (32-36); MEAN CORPUSCULAR VOLUME 94 FL (80-99); MEAN PLATELET VOLUME 9.8 FL (7.4-10.4); MONOCYTES # (AUTO) 1.5 X 10^3 (0.0-1.0); MONOCYTES % (AUTO) 15 % (0-12); NEUTROPHILS # (AUTO) 7.1 X 10^3 (1.8-7.8); NEUTROPHILS % (AUTO) 69 % (42-75); PLATELET COUNT 143 10^3/uL (130-400); RED BLOOD COUNT 3.76 10^6/uL (4.35-5.85); RED CELL DISTRIBUTION WIDTH 13.3 % (10.0-14.5); WHITE BLOOD COUNT 10.3 10^3/uL (4.3-11.0)
[2017-04-30 05:28] LABS: ANION GAP 10 MMOL/L (5-14); BLOOD UREA NITROGEN 18 MG/DL (7-18); BUN/CREATININE RATIO 28; CALCIUM 8.8 MG/DL (8.5-10.1); CARBON DIOXIDE 26 MMOL/L (21-32); CHLORIDE 103 MMOL/L (98-107); CREATININE SERUM 0.65 MG/DL (0.60-1.30); GFR ESTIMATED > 60; GLUCOSE 127 MG/DL (70-105); MAGNESIUM 1.5 MG/DL (1.8-2.4); PHOSPHORUS 2.7 MG/DL (2.3-4.7); SODIUM 139 MMOL/L (135-145)
[2017-04-30] MEDS: KCL 20 MEQ TAB (K-DUR) PO SCH (05:31)
[2017-04-30] MEDS: POTASSIUM CL 10MEQ/50ML IVPB 50 ML IV SCH (05:31)
[2017-04-30] MEDS: inSUlin ASPART (NovoLOG) 1 UNIT/0.01 ML (CHARGE PER UNIT) SC SCH ×3 (05:32→18:25)
[2017-04-30] MEDS: MAGNESIUM 1 GM/100 ML IVPB 100 ML IV SCH ×3 (05:39→07:02)
[2017-04-30] MEDS: cefTRIAXone INJECTION 1,000 MG in NS (IVPB) 50 ML IV SCH (08:21)
--- NOTE | 2017-04-30 08:38 | Diagnostic Imaging Report ---
INDICATION: Sepsis, hypoxia. TECHNIQUE: A frontal chest was obtained at 0441 hours. COMPARISON: 04/28/2017. FINDINGS: The heart is mildly enlarged. The aorta is tortuous. There are chronic appearing increased interstitial markings with no definite acute consolidation. There is no pneumothorax or pleural fluid. There are old bilateral rib fractures. IMPRESSION: Cardiomegaly. Chronic appearing increased interstitial markings. No consolidation or pleural fluid. Dictated by: Dictated on workstation # [id number]
--- NOTE | 2017-04-30 10:19 | Progress Note-Hospitalist ---
Subjective HPI/CC On Admission Date Seen by Provider: Apr 30, 2017 Time Seen by Provider: 07:30 Pt is an 81yoCM with a PMH of dementia who presented to the ER due to unresponsiveness. He is unable to provide me any history. His care provider from [facility] is at bedside. She reports that he had a normal day yesterday and at his 1130pm bed check he was fine per their staff. At 130AM when they checked on him his was unresponsive. She was then called to his room and she checked a blood sugar which was too low to read. EMS was called then. Per ER provide he was treated for hypoglycemia per EMS and nexyt BS check was 88. On arrival here his BS was normal but quickly dropped to 23. He was treated again with an amp of D50. His mentation has not improved despite normalization of blood sugars. He was also found to be hypoxic on arrival and was placed on BiPAP by the ER. He was Subjective/Events-last exam Pt is unable to provide any history. He awkes to verbal stimuli but does not speech. His daughter in law at bedside reports he is still not tohis baseline but does seem slightly more alert. They have [facility] upon discharge. Objective Exam Vital Signs Vital Sign - Last 12Hours 04/28/17 04/28/17 04:58 08:40 Temp 96.1 Pulse 114 Resp 18 B/P (MAP) 92/73 (79) Pulse Ox 88 O2 Delivery Non Rebreather O2 Flow Rate 15.00 FiO2 45 Capillary Refill : Less Than 3 Seconds General Appearance: Chronically ill Respiratory: Lungs Clear, No Respiratory Distress Cardiovascular: Regular Rate, Rhythm, No Edema, No Murmur Gastrointestinal: Normal Bowel Sounds, Non Tender, Soft Neurologic/Psychiatric: Alert, Disoriented x3 Results/Procedures Lab Laboratory Tests 04/30/17 04:30 Assessment/Plan Assessment and Plan Assess & Plan/Chief Complaint Sepsis Diagnosis/Problems Diagnosis/Problems (1) Altered mental status Status: Acute Assessment & Plan: Likely due to sepsis Hypoglycemia now resolved Continue IV abx for UTI Await speech eval before transitioning to oral Qualifiers: Qualified Codes: R41.82 - Altered mental status, unspecified (2) UTI (urinary tract infection) Status: Acute Assessment & Plan: Met severe sepsis criteria on admission (tachycardia and leukocytosis with lactic acidosis) - now resolved No hypotension so no indication for fluid bolus Continue Rocephin per sensitivities, Day 3 Lactic acidosis now resolved Blood cx and urine cx ordered in ER - urine cx shows proteus >100,000 CFU and <100,000 CFU GPC Qualifiers: Qualified Codes: N30.00 - Acute cystitis without hematuria (3) Severe sepsis Status: Resolved Assessment & Plan: As above Lactic acidosis resolved Continue IV Abx (4) Acute respiratory distress Status: Acute Assessment & Plan: Pulm consulted, appreciate recs Now off BiPAP MAT protocol (5) Atrial fibrillation with RVR Status: Acute Assessment & Plan: Cardiology consulted, appreciate recs Rate improved Started Lovenox and developed abby red bloody urine Holding after discussion with family about risks (6) Hypoglycemia Status: Acute Assessment & Plan: Holding basal insulin and BS WNL Off D5 Continue to trend Q6 Accu-checks (7) Essential (primary) hypertension Status: Chronic Assessment & Plan: BP elevated Unable to tolerate oral home meds prn nitropaste (8) Normocytic anemia Status: Chronic Assessment & Plan: Mild, trend (9) Counseling regarding end of life decision making Assessment & Plan: Discussed poor prognosis with family, they have confirmed he is a DNR and would not like invasive or extreme measures done Discussed progression of dementia with family and how UTIs and Pneumonia are common in end stage dementia Have elected [facility] for care at discharge JESSI GARCIA MD Apr 30, 2017 10:19 am
--- NOTE | 2017-04-30 12:44 | ST Dysphagia Evaluation ---
Speech Evaluation-General Medical Diagnosis Altered Mental Status Onset Date: Apr 28, 2017 Therapy Diagnosis Therapy Diagnosis: Suspected Oropharyngeal Dysphagia Precautions Precautions: Aspiration Precautions/Isolations: Fall Prevention, Standard Precautions, Pressure Ulcer Referral Referring Physician: Dr. Waldron Reason for Referral: Evaluation/Treatment Clinical Bedside Swallowing Evaluation Medical History Pertinent Medical History: CVA, DM, Dementia, HTN Current History The patient was recently admitted to [facility] after being found unresponsive at his current residence. Reviewed History: Yes Speech PLF/Current-Dysphagia Prior Level of Function The patient was unable to provide the clinician with prior level of care information secondary to dementia, current level of lethargy/fatigue. Subjective The patient was repositioned upright in bed upon entrance with the aid of his RN , Xiomara. The patient minimally opened eyes to verbal prompts by the clinician , however, quickly re-closed. Per patient's family member and palliative care RN , the patient was more response the day prior. Cognitive Status Patient Orientation: Unable to Assess The patient did not respond verbally or nonverbally to orientation questions. Oral Motor Skills Dentition: Edentalous Ability to Follow Directions: Unable The patient is currently NPO pending the results and recommendations of the swallowing evaluation. Oral Expression Ability: Severe Impairment Face Facial Symmetry: Asymmetrical (An overt, right facial droop was present at baseline. Additional oral motor movements could not be assessed as the patient was unable to follow verbal instructions.) Oral-Facial Assessment Oral-Facial Dentition: Normal Labial Seal Description: Droops Right Dysphagia Evaluation Consistencies Presented: Thin Liquid (Via Teaspoon.) Oral Phase: Anterior Spillage, Absent Oral Transit - The patient did not make attempts to draw the bolus material from the spoon. - A pharyngeal swallow was not elicited. - The patient did not attempt to remove thin liquid (water) from the teaspoon on any occasion. Due to this inability, a pharyngeal swallow was not initiated. Dietary Recommendations: NPO Liquid Recommendations: NPO Due to the patient's current level or reduced alertness, an oral diet is not appropriate or deemed safe by the clinician. The clinician will reattempt the swallow evaluation if alertness improves. - Provide frequent oral care to reduce the transfer of oral bacteria to the lungs should aspiration of secretions occur. Dysphagia Evaluation Summary Suspected oropharyngeal dysphagia. Barriers to Learning Reduced Cognition, Reduced Alertness Speech Procedures Rn Goals Procedures Rn Goals 1. The patient will participate in a bedside swallowing evaluation to assess for swallowing safety. Time Frame: One Week Speech-Plan Treatment Plan Speech Therapy Treatment Plan: Continue Plan of Care Speech pathology will continue to monitor patient's appropriateness for oral trials. Treatment Duration: May 07, 2017 Frequency: 3 times per week Estimated Hrs Per Day: .25 hour per day Rehab Potential: Poor Safety Risks/Education Teaching Recipient: Patient, Family Teaching Methods: Discussion Response to Teaching: Verbalize Understanding (Patient's Caregiver/Family) Education Topics Provided: Results, Recommendations, Plan of Care Time Speech Therapy Time In: 10:00 Speech Therapy Time Out: 10:20 Total Billed Time: 20 Billed Treatment Time 1, APOLLO PURDY Apr 30, 2017 12:44
--- NOTE | 2017-04-30 13:04 | Cardiology Progress Note ---
Cardiology SOAP Progress Note Subjective: Not communicating. However family member tells me that the patient has not complained of any chest pain or shortness of breath. Objective: I&O/Vital Signs Vital Sign - Last 12Hours 04/30/17 04/30/17 04/30/17 04/30/17 02:00 03:00 03:03 04:00 Temp 97.1 Pulse 85 92 Resp 16 13 B/P (MAP) 162/99 (120) 141/86 (104) Pulse Ox 97 98 98 O2 Delivery Nasal Cannula Nasal Cannula Nasal Cannula O2 Flow Rate 4.00 4.00 4.00 04/30/17 04/30/17 04/30/17 04/30/17 04:00 04:00 04:42 05:00 Pulse 96 90 99 Resp 16 15 14 B/P (MAP) 119/75 (90) 139/95 (110) Pulse Ox 98 98 96 97 O2 Delivery Nasal Cannula Nasal Cannula Nasal Cannula Nasal Cannula O2 Flow Rate 4.00 4.00 2.00 2.00 04/30/17 04/30/17 04/30/17 04/30/17 06:00 06:49 06:51 07:00 Pulse 86 78 80 Resp 18 17 B/P (MAP) 132/86 (101) Pulse Ox 97 96 99 O2 Delivery Nasal Cannula Nasal Cannula Nasal Cannula O2 Flow Rate 2.00 3.00 3.00 04/30/17 04/30/17 04/30/17 04/30/17 07:00 08:00 08:30 08:30 Temp 97.6 Pulse 80 100 92 Resp 17 21 15 B/P (MAP) 132/78 (96) 163/108 (126) 124/88 (100) Pulse Ox 97 92 98 99 O2 Delivery Nasal Cannula Nasal Cannula Nasal Cannula Nasal Cannula O2 Flow Rate 3.00 3.00 3.00 3.00 04/30/17 04/30/17 04/30/17 09:00 10:00 10:49 Pulse 90 90 Resp 22 25 B/P (MAP) 155/93 (113) Pulse Ox 94 90 98 O2 Delivery Nasal Cannula Nasal Cannula Nasal Cannula O2 Flow Rate 3.00 3.00 3.00 Intake and Output 04/30/17 00:00 Intake Total 0 ml Output Total 525 ml Balance -525 ml Weight (Pounds): 154 Weight (Ounces): 1.0 Weight (Calculated Kilograms): 69.371333 Constitutional: No appears stated age, No AAO x 3, No apparent distress, No PERRL, No well-developed, No well-nourished, other Respiratory: No accessory muscle use, No respiratory distress, No chest tender , No chest expansion is symmetric, No chest is bilaterally symmetric, No lungs clear to percussion, No lungs clear to auscultation, No crackles, No rhonchi, No rales, No stridor, No wheezing, No pleural rub, other (coarse bilateral breath sounds) Cardiovascular: irregularly irregular, tachycardia, S1 and S2 Gastrointestional: No tender, No soft, No round, No distended, No pulsatile mass, No organomegaly, No guarding, No rebound, No tenderness, No hernia, No mass, No audible bowel sounds, No abnormal bowel sounds, No abdominal bruits, No spleenomegaly, No other Extremities: No normal range of motion, No non-tender, No normal inspection, No pedal edema, No calf tenderness, No normal capillary refill, No pelvis stable , No calf tenderness, No inflammation, No pedal edema, No slow capillary refill , No swelling, No other, No abrasion, No clubbing, No cyanosis, No ecchymosis, No laceration, No no lower extremity edema bilateral, No significant edema, No tenderness, No wound Neurologic/Psychiatric: No sports analyst II-XII nml as tested, No no motor/sensory deficits, No alert, No normal mood/affect, No oriented x 3, No abnormal cerebellar tests, No abnormal sports analyst II-XII, No abnormal gait, No aphasia, No EOM palsy, No facial droop, No motor weakness, No sensory deficit, No depressed affect, No disoriented x 3, No other, No grossly intact, No power is 5/5 both on sides Skin: No normal color, No warm/dry, No cyanosis, No cool, No diaphoresis, No damp, No ecchymosis, No jaundice, No mottled, No pallor, No rash, No tattoos/ piercings, No ulcerations, No rash on exposed areas, No ulcerations on exposed areas, No other Results/Procedures: Labs Laboratory Tests 04/29/17 16:21: Glucometer 120H 04/29/17 20:51: Glucometer 134H 04/30/17 00:57: Glucometer 129H 04/30/17 04:30: White Blood Count 10.3, Red Blood Count 3.76L, Hemoglobin 11.9L, Hematocrit 35L , Mean Corpuscular Volume 94, Mean Corpuscular Hemoglobin 32, Mean Corpuscular Hemoglobin Concent 34, Red Cell Distribution Width 13.3, Platelet Count 143, Mean Platelet Volume 9.8, Neutrophils (%) (Auto) 69, Lymphocytes (%) (Auto) 16, Monocytes (%) (Auto) 15H, Eosinophils (%) (Auto) 0, Basophils (%) (Auto) 0, Neutrophils # (Auto) 7.1, Lymphocytes # (Auto) 1.7, Monocytes # (Auto) 1.5H, Eosinophils # (Auto) 0.0, Basophils # (Auto) 0.0, Sodium Level 139, Potassium Level 4.0, Chloride Level 103, Carbon Dioxide Level 26, Anion Gap 10, Blood Urea Nitrogen 18, Creatinine 0.65, Estimat Glomerular Filtration Rate > 60, BUN/ Creatinine Ratio 28, Glucose Level 127H, Calcium Level 8.8, Phosphorus Level 2.7 , Magnesium Level 1.5L Microbiology 04/28/17 Blood Culture - Preliminary, Resulted Strep Or Related Genus See Comments 04/28/17 Influenza Types A,B Antigen (LISA) - Final, Complete 04/28/17 Urine Culture - Final, Complete Proteus Mirabilis Strep Or Related Genus A/P: Assessment/Dx: Unresponsive, shortness of breath, atrial fibrillation with rapid ventricular rate, dementia Plan: Initial admission secondary to altered mental status secondary to hypoglycemia. Defer to Dr. Waldron. Advanced dementia. Shortness of breath: Negative currently improved. Atrial fibrillation with rapid ventricular rate. Much better control of ventricular rate. Already on Lovenox. Cannot take by mouth. Need to discuss with family whether they will agree with oral anticoagulation therapy. If he has risk for fall he may not be a good candidate. Echocardiogram shows normal LV function. No significant valvular heart disease. Dr. Armstrong covering cardiology service from tomorrow. Thank you for your consultation. Please call me if you have any questions. Kashmir Wright MD, FACP, FACC, FSCAI, FHRS, CCDS Interventional Cardiology Cardiac Electrophysiology Vascular Medicine and Endovascular Interventions Teagan WRIGHT MD Apr 30, 2017 1:04 pm
--- NOTE | 2017-04-30 15:23 | Speech Therapy Daily Note ---
Speech Daily Progress Note Subjective Date Seen by Provider: Apr 30, 2017 Time Seen by Provider: 15:00 The clinician was contacted by the patient's RN, stating the patient was more alert and may be appropriate for a swallow evaluation. Due to this, the clinician reported to the clinician's room. Objective The patient was positioned upright in bed by the clinician. The patient's eyes were opened and he continuously moaned loudly. Thin Liquid/[place]-Thick Liquids: After multiple attempts of teaspoon trials, the patient was unable to draw the liquid from the spoon. Due to this, a straw was attempted. The patient displayed an immediate, rigorous cough with trials of thin liquid and nectar-thick liquid. Honey-Thick Liquid: The patient refused trials of honey-thickened liquid via teaspoon or straw sip. Following multiple attempts, bolus trials were terminated. The clinician discussed the plan of care with the patient's daughter, who verbally agreed and comprehended the material. At this time, the patient is not safe or appropriate for PO intake. The patient's alertness must improve and he must participate in a full evaluation. At this time, the clinician continues to recommend the patient remain NPO. The above was discussed and shared with the patient's RN. Assessment Assessment Current Status: Poor Progress Treatment Plan Continue Plan of Care Speech Rn Surgical Pcu Goals Fdc Goals 1. The patient will participate in a bedside swallowing evaluation to assess for swallowing safety. Time Frame: One Week Speech-Plan Treatment Plan Speech Therapy Treatment Plan: Continue Plan of Care Continue skilled speech pathology to attempt completion of bedside swallowing evaluation. Treatment Duration: May 07, 2017 Frequency: 3 times per week Estimated Hrs Per Day: .25 hour per day Rehab Potential: Poor Safety Risks/Education Teaching Recipient: Patient, Family Teaching Methods: Discussion Response to Teaching: Verbalize Understanding (Patient's Daughter) Education Topics Provided: Results, Recommendations Time Speech Therapy Time In: 15:00 Speech Therapy Time Out: 15:15 Total Billed Time: 15 Billed Treatment Time OSMANI Soriano APOLLO OLIVERA Apr 30, 2017 15:23
[2017-05-01] VITALS: BP 149/85
[2017-05-01] MEDS: inSUlin ASPART (NovoLOG) 1 UNIT/0.01 ML (CHARGE PER UNIT) SC SCH ×3 (00:17→13:03)
[2017-05-01] MEDS: RT-ALBUTEROL/IPRATROPIUM 3 ML (DUONEB) VIAL INH SCH ×3 (02:11→09:44)
[2017-05-01 04:00] VITALS: BP 157/84
--- NOTE | 2017-05-01 07:02 | Diagnostic Imaging Report ---
INDICATION: Sepsis and hypoxia. Portable AP upright view of the chest is obtained with comparison made to study of one day earlier. FINDINGS: Overall heart size and pulmonary vascularity are within normal limits. Posttraumatic changes are again noted in the right chest with multiple old right rib fractures. There are also probable old left rib fractures with no significant change in the sclerotic lesion in the proximal right humerus. There has been mild overall increase in pulmonary density which may reflect diffuse edema and/or pneumonitis. IMPRESSION: Mild diffuse pulmonary edema and/or pneumonitis has worsened. Otherwise, there is no significant change from previous study. Dictated by: Dictated on workstation # [id number]
[2017-05-01] MEDS: cefTRIAXone INJECTION 1,000 MG in NS (IVPB) 50 ML IV SCH (08:45)
[2017-05-01 08:56] VITALS: BP 182/89
[2017-05-01] MEDS ORDERED: MORP100S3 PO (10:31)
[2017-05-01] MEDS ORDERED: LORA2ORA PO (10:31)
--- NOTE | 2017-05-01 11:44 | Discharge Summary-Hospitalist ---
Diagnosis/Chief Complaint Date of Admission Apr 28, 2017 at 7:40 am Date of Discharge Discharge Date: May 01, 2017 Admission Diagnosis Altered Mental Status Discharge Diagnosis Sepsis (1) Altered mental status Status: Acute Assessment & Plan: Likely due to sepsis Hypoglycemia now resolved No improved despite 4 days of antibiotics and correction of hypoglycemia Family has elected to proceed with comfort measures only, will DC to hospice (2) UTI (urinary tract infection) Status: Acute Assessment & Plan: Met severe sepsis criteria on admission (tachycardia and leukocytosis with lactic acidosis) - now resolved No hypotension so no indication for fluid bolus Rocephin per sensitivities, Day 4 Lactic acidosis now resolved Blood cx and urine cx ordered in ER - urine cx shows proteus mirabilis >100,000 CFU and <100,000 CFU GPC (3) Severe sepsis Status: Resolved Assessment & Plan: As above Lactic acidosis resolved IV abx as above (4) Acute respiratory distress Status: Resolved Assessment & Plan: Pulm consulted, appreciate recs Now off BiPAP MAT protocol (5) Atrial fibrillation with RVR Status: Acute Assessment & Plan: Cardiology consulted, appreciate recs Rate improved Started Lovenox and developed abby red bloody urine Holding after discussion with family about risks vs benefits (6) Hypoglycemia Status: Acute Assessment & Plan: Holding basal insulin and BS WNL Off D5 Continue to trend Q6 Accu-checks (7) Essential (primary) hypertension Status: Chronic Assessment & Plan: BP elevated Unable to tolerate oral home meds prn nitropaste (8) Normocytic anemia Status: Chronic Assessment & Plan: Mild, trend (9) Counseling regarding end of life decision making Assessment & Plan: Discussed poor prognosis with family, they have confirmed he is a DNR and would not like invasive or extreme measures done Discussed progression of dementia with family and how UTIs and Pneumonia are common in end stage dementia Have elected [facility] for care at discharge They would like to forgo further antibiotics and direct goals towards comfort only Will DC home with hospice today to [facility] Discharge Summary Consultations Cardiology: Dr Wright Discharge Physical Examination Allergies: Coded Allergies: No Known Drug Allergies (Unverified , 11/04/15) Vitals & I&Os Vital Signs Date Time Temp Pulse Resp B/P (MAP) Pulse Ox O2 Delivery O2 Flow Rate FiO2 05/01/17 15:30 100 16 182/89 96 Nasal Cannula 2.50 05/01/17 08:56 97.3 12/19/17 04:00 30 Hospital Course Pt is an 81yoCM who presented for AMS and was found to be severe hypoglycemic and meeting severe sepsis criteria from a UTI. He was admitted to the ICU for his severe sepsis. His hypoglycemia was corrected and did not return with discontinuation of his insulin. He was treated with IV Rocephin per his sensitivities from his urine culture but his mentation did not improve. His family elected to proceed only with comfort measures per his wishes for end of life care and elected [facility] at discharge. Labs (last 24 hrs) Laboratory Tests 05/01/17 00:08: Glucometer 147H 05/01/17 05:48: Glucometer 145H Microbiology 04/28/17 Blood Culture - Preliminary, Resulted Strep Or Related Genus See Comments 04/28/17 Influenza Types A,B Antigen (LISA) - Final, Complete 04/28/17 Urine Culture - Final, Complete Proteus Mirabilis Strep Or Related Genus Pending Labs Discussion & Recommendations Over 30m of time spent coordinating discharge plan. Discharge Home Medications: Active Scripts Active Lorazepam Intensol (Lorazepam) 2 Mg/1 Ml Oral.conc 2 Mg PO Q4H Morphine Sulfate Concentrate 20mg/ml (Morphine Sulfate) 100 Mg/5 Ml Solution 20 Mg PO Q2H PRN Reported Trazodone HCl 100 Mg Tablet 100 Mg PO HS Alprazolam 0.5 Mg Tablet 0.5 Mg PO TID Instructions to patient/family Please see electronic discharge instructions given to patient. Clinical Quality Measures DVT/VTE Risk/Contraindication: Risk Factor Score Per Nursin RFS Level Per Nursing on Admit: 4+=Very High Comfort Measures/ Type of Care: Hospice Care (Home) Problem Qualifiers (1) Altered mental status: Altered mental status type: unspecified Qualified Codes: R41.82 - Altered mental status, unspecified (2) UTI (urinary tract infection): Urinary tract infection type: acute cystitis Hematuria presence: without hematuria Qualified Codes: N30.00 - Acute cystitis without hematuria JESSI GARCIA MD May 01, 2017 11:44
[2017-05-01 15:30] VITALS: BP 182/89
== END 2017-05-01 15:45 | disposition hospice, home (50) | DRG 871 ==
LOC: EDUNIT# 04:45 → ER 04:46 → ICU 07:40 → 4TH 04-30 09:59
PROVIDERS: ADMIT Family Medicine; ATTEND Family Medicine
DX: A41.9 Sepsis, unspecified organism (principal); R65.20 Severe sepsis without septic shock; N39.0 Urinary tract infection, site not specified; J96.90 Respiratory failure, unspecified, unspecified whether with hypoxia or hypercapnia; G12.21 Amyotrophic lateral sclerosis; E11.649 Type 2 diabetes mellitus with hypoglycemia without coma; I48.0 Paroxysmal atrial fibrillation; I10 Essential (primary) hypertension; Z66 Do not resuscitate; E78.00 Pure hypercholesterolemia, unspecified; F03.90 Unspecified dementia, unspecified severity, without behavioral disturbance, psychotic disturbance, mood disturbance, and anxiety; F32.9 Major depressive disorder, single episode, unspecified; D64.9 Anemia, unspecified; Z87.891 Personal history of nicotine dependence; Z86.73 Personal history of transient ischemic attack (TIA), and cerebral infarction without residual deficits; Z79.4 Long term (current) use of insulin
CPT/HCPCS: 36415; 51702; 70450; 71010; 80048; 80053; 80164; 81000; 82150; 82805; 82962; 83605; 83690; 83735; 83880; 84100; 84443; 84484; 85025; 85610; 85730; 87040; 87077; 87088; 87186; 87804; 93005; 93041; 93306; 94640; 94660; 94760; 96365; 96375

== ENCOUNTER 2018-07-05 11:48 | Emergency (ER) | payer MEDICARE ==
[~2018-07-05] VITALS: Ht 193 cm; Wt 58.1 kg
[~2018-07-05 11:48] MED LIST changes: +ACET-77 PO; +ALPR0.5T7 PO; -AMLO5TAB2 PO; +AMLO5TAB9 PO; +ASPI-983 PO; +DIVA125C10 PO; +LORA2ORA PO; +MELA3TAB PO; +METF-397 PO; -METF500T4 PO; +MORP100S3 PO; +POLY17PO6 PO; +SIMV5TAB22 PO; -SIMV5TAB6 PO; +TOLTA4 PO; +TRAZ-190 PO
--- OUTSIDE RECORDS SUMMARY | 2018-07-05 11:52 | XMS REPORT ---
Author Author ABBY CANTOR Organization [facility] Address [address] [place] [address] Phone Unavailable Care Team Providers Care Service Observer Chief Name Role Phone ABBY CANTOR Unavailable Unavailable PROBLEMS Unknown Problems ALLERGIES No Known Allergies ENCOUNTERS Encounter Location Date Diagnosis [facility] [address] [facility] [id number] [place], [place] [id number] Aug, Dental examination Z01.20 IMMUNIZATIONS No Known Immunizations SOCIAL HISTORY Never Assessed REASON FOR VISIT ADULT OUTREACH [facility] PLAN OF CARE Activity Details Follow Up 6 Months Reason:ON SITE RECALL VITAL SIGNS MEDICATIONS Medication Instructions Dosage Frequency Start Date End Date Duration Status Ultram Active Levemir FlexTouch Active Tylenol 8 Hour Active RESULTS No Results PROCEDURES Procedure Date Ordered Result Body Site SCREENING OF A PATIENT August 28, 2017 INSTRUCTIONS MEDICATIONS ADMINISTERED No Known Medications
[2018-07-05] MEDS ORDERED: morphine INJ 10 MG/ML 1ML (SYR OR VIAL) ONE (11:58)
[2018-07-05] MEDS ORDERED: morphine INJ 10 MG/ML 1ML (SYR OR VIAL) IVP STA (12:02)
--- NOTE | 2018-07-05 12:07 | ED General ---
General Chief Complaint: General Problems/Pain Stated Complaint: ASPIRATION,LOW BLOOD SUGAR Source of Information: Patient Exam Limitations: No Limitations History of Present Illness Date Seen by Provider: Jul 05, 2018 Time Seen by Provider: 11:49 Initial Comments This 82-year-old gentleman presents to the emergency room via EMS because of low blood sugar and possible aspiration. He is a resident of [facility] and is on hospice. EMS found blood sugar to be "low". An amp of D50 was administered which brought his blood sugar up to 193. The decision to transport to the emergency room via EMS was made because hospice staff was not immediately available to assess the patient. Patient is normally alert and does talk some. He does have significant dementia and significant contractures of the extremities. Patient's DPOA, Arin, arrived shortly after patient did. She reports that he has been suffering significantly recently and expressed desire to . After discussion with Arin and staff from the home, it was determined that the most humane thing was to make him comfortable with some morphine and transfer him back to the home for hospice to resume care. I asked them to consider what they would do if he had another severe hypoglycemic episode and developed a plan accordingly. EMS was still present during discussion and transported the patient back to the home. DPOA did not want any further evaluation performed. Morphine 4 mg was given for comfort prior to transfer back. Blood sugar on arrival to the ER as 304. Patient was mildly hypoxic on nasal cannula Allergies and Home Medications Allergies Coded Allergies: No Known Drug Allergies (Unverified , 11/04/15) Home Medications Alprazolam 0.5 Mg Tablet, 0.5 MG PO TID, (Reported) Lorazepam 2 Mg/1 Ml Oral.conc, 2 MG PO Q4H Prescribed by: JESSI GARCIA on 05/01/17 1031 Morphine Sulfate 100 Mg/5 Ml Solution, 20 MG PO Q2H PRN for PAIN Prescribed by: JESSI GARCIA on 05/01/17 1031 Trazodone HCl 100 Mg Tablet, 100 MG PO HS, (Reported) Patient Home Medication List Home Medication List Reviewed: Yes Review of Systems Review of Systems Constitutional: no symptoms reported EENTM: no symptoms reported Respiratory: see HPI Cardiovascular: no symptoms reported Gastrointestinal: no symptoms reported Genitourinary: no symptoms reported Musculoskeletal: see HPI Skin: no symptoms reported Psychiatric/Neurological: See HPI Hematologic/Lymphatic: No Symptoms Reported Immunological/Allergic: no symptoms reported Past Fgaabky-Hezvgr-Qprkih Hx Past Med/Social Hx: Reviewed and Corrections made Patient Social History Type Used: Cigarettes Former Smoker, Quit: Apr 11, 1990 Recent Foreign Travel: No Contact w/Someone Who Travel: No Recent Hopitalizations: No Immunizations Up To Date Tetanus Booster (TDap): Unknown Date of Pneumonia Vaccine: Apr 28, 2016 Date of Influenza Vaccine: Apr 17, 2017 Seasonal Allergies Seasonal Allergies: No Past Medical History Surgeries: Yes Lobectomy Respiratory: No Cardiac: Yes High Cholesterol, Hypertension Neurological: Yes ALS/Rosie Gehrig's, Dementia, Stroke HIV/AIDS: No Genitourinary: No Gastrointestinal: No Musculoskeletal: Yes (contractures) Endocrine: Yes Diabetes, Insulin dep HEENT: No Cancer: Yes (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 4.0oz. 89.766937cd; 20.1 BMI Method:Estimated General Appearance: No Apparent Distress, WD/WN HEENT: PERRL/EOMI, Normal ENT Inspection Neck: Normal Inspection Respiratory: No Accessory Muscle Use, No Respiratory Distress, Rhonci Cardiovascular: No Edema, No Murmur, Tachycardia Gastrointestinal: Non Tender, Soft Extremity: Other (contractures and atrophy) Neurologic/Psychiatric: Alert, Other (makes some audible sounds but no comprehensible words. Does respond to voice.) Skin: Normal Color, Warm/Dry Progress/Results/Core Measures Suspected Sepsis SIRS Temperature: Pulse: Respiratory Rate: Blood Pressure / Mean: Results/Orders Lab Results Laboratory Tests Test 07/05/18 11:55 Range/Units Glucometer 304 H 70-110 MG/DL My Orders Orders - NGUYEN BERRISO MD Morphine Injection (Morphine Injection (07/05/18 12:02) Morphine Injection (Morphine Injection (07/05/18 11:58) Vital Signs/I&O 07/05/18 12:00 Temp 96.0 Pulse 129 Resp 12 B/P (MAP) 146/117 (127) Pulse Ox 92 O2 Delivery Nasal Cannula O2 Flow Rate 2.00 Capillary Refill : Progress Note : Progress Note See history of present illness for description of ER course. Departure Impression Primary Impression: Hypoglycemia Additional Impression: Hypoxia Disposition: 01 HOME, SELF-CARE Condition: Unchanged Departure-Patient Inst. Decision time for Depature: 12:06 Referrals: JARETT GONZALES DO (PCP/Family) Primary Care Physician Add. Discharge Instructions: Contact hospice for further direction on care. Use medications as previously prescribed to control symptoms. All discharge instructions reviewed with patient and/or family. Voiced understanding. Copy Copies To 1: JARETT GONZALES JOSHUA T MD Jul 05, 2018 12:07
[2018-07-05 12:18] VITALS: BP 144/112
== END 2018-07-05 12:18 | disposition home or self-care (01) ==
LOC: EDUNIT# 11:48 → ER 11:49
DX: E11.649 Type 2 diabetes mellitus with hypoglycemia without coma (principal); R09.02 Hypoxemia; F03.90 Unspecified dementia, unspecified severity, without behavioral disturbance, psychotic disturbance, mood disturbance, and anxiety; F32.9 Major depressive disorder, single episode, unspecified; E78.00 Pure hypercholesterolemia, unspecified; I10 Essential (primary) hypertension; G12.21 Amyotrophic lateral sclerosis; Z85.05 Personal history of malignant neoplasm of liver; Z86.73 Personal history of transient ischemic attack (TIA), and cerebral infarction without residual deficits; Z87.891 Personal history of nicotine dependence
CPT/HCPCS: 82962; 96374; 99283